=== PATIENT | female | born 1950 | race Caucasian/White ===

== ENCOUNTER → 2023-12-17 15:29 | Outpatient (REF) | payer MEDICARE, OTHER, SELFPAY | LOC: HWRAD 15:29 | PROVIDERS: ATTENDING PHYSICIAN Otolaryngology Facial Plastic Surgery; FAMILY PHYSICIAN Family Medicine | DX: J33.0 Polyp of nasal cavity (principal); J32.0 Chronic maxillary sinusitis; J34.2 Deviated nasal septum | CPT/HCPCS: 70486 ==

== ENCOUNTER → 2024-06-16 09:56 | Outpatient (REF) | payer MEDICARE, OTHER, SELFPAY | LOC: WDC 09:56 | PROVIDERS: ATTENDING PHYSICIAN Family Medicine | DX: N63.20 Unspecified lump in the left breast, unspecified quadrant (principal); N64.59 Other signs and symptoms in breast | CPT/HCPCS: 76642; 77062; 77066 ==

== ENCOUNTER → 2024-07-28 07:58 | Outpatient (REF) | payer MEDICARE, OTHER, SELFPAY ==
--- NOTE | 2024-07-28 13:41 | OID.BR.INTR ---
[facility] Breast Navigator - Initial
- -
Date of Contact: 07/28/24
Met with patient. Patient given written information on navigator services available at [facility]. Will follow up as needed per protocol.
== END ==
LOC: WDC 07:58
PROVIDERS: ATTENDING PHYSICIAN Family Medicine
DX: N63.23 Unspecified lump in the left breast, lower outer quadrant (principal)
CPT/HCPCS: 88305; 19083; A4648

== ENCOUNTER → 2024-08-29 11:00 | Outpatient (REF) | payer MEDICARE, OTHER, SELFPAY | LOC: CLAB 11:00 | PROVIDERS: ATTENDING PHYSICIAN Surgery | DX: C50.412 Malignant neoplasm of upper-outer quadrant of left female breast (principal) | CPT/HCPCS: 88305 ==

== ENCOUNTER → 2024-09-22 08:53 | Outpatient (REF) | payer MEDICARE, OTHER, SELFPAY | LOC: WDC 08:53 | PROVIDERS: ATTENDING PHYSICIAN Surgery; FAMILY PHYSICIAN Family Medicine | DX: R92.30 Dense breasts, unspecified (principal) | CPT/HCPCS: 76641 ==

== ENCOUNTER → 2024-10-04 07:43 | Outpatient (REF) | payer MEDICARE, OTHER, SELFPAY | LOC: WDC 07:43 | PROVIDERS: ATTENDING PHYSICIAN Surgery | DX: N63.14 Unspecified lump in the right breast, lower inner quadrant (principal) | CPT/HCPCS: 88305; 19083; A4648 ==

== ENCOUNTER → 2024-10-09 11:29 | Outpatient (REF) | payer MEDICARE, OTHER, SELFPAY | LOC: WDC 11:29 | PROVIDERS: ATTENDING PHYSICIAN Surgery | DX: C50.412 Malignant neoplasm of upper-outer quadrant of left female breast (principal) | CPT/HCPCS: 38792; 76942; A9541 ==

== ENCOUNTER 2024-10-10 09:35 | Inpatient (IN) | payer MEDICARE, OTHER, SELFPAY ==
[2024-09-26 08:56] LABS: Hematocrit 44.8 % (37.0-47.0); Hemoglobin 14.9 g/dL (12.0-16.0); Mean Corp Hgb Conc. 33.3 g/dL (33.0-37.0); Mean Corpuscular Hgb 31.2 pg (27.0-31.0); Mean Corpuscular Volume 93.7 fL (81.0-99.0); Mean Platelet Volume 10.5 fL (7.4-10.4); Platelet Count 284 10^3/uL (130-400); Red Blood Cell Count 4.78 10^6/uL (4.20-5.40); Red Cell Dist. Width 13.6 % (11.5-14.5); White Blood Cell Count 8.4 10^3/uL (4.8-10.8)
[2024-09-26 09:47] LABS: Prealbumin (Transthyretin) 27.1 mg/dl (17.6-36.0)
[2024-09-26 09:57] LABS: Vitamin D, 25-OH*** 39.2 ng/mL (30-80)
[2024-09-26 10:09] LABS: ALT (SGPT) 17 U/L (0-35); AST (SGOT) 21 U/L (14-36); Albumin 4.4 g/dl (3.5-5.0); Alkaline Phosphatase 107 U/L (38-126); Blood Urea Nitrogen 11 mg/dl (7-17); Calcium 9.3 mg/dl (8.4-10.2); Carbon Dioxide 27 mmol/L (22-30); Chloride 101 mmol/L (98-107); Glucose 91 mg/dl (70-99); Potassium 4.2 mmol/L (3.5-5.1); Sodium 139 mmol/L (135-145); Total Bilirubin 0.9 mg/dl (0.2-1.3); eGFR > 60.00
[2024-09-26 13:34] VITALS: BMI 26.5
[2024-10-10] VITALS (18 sets, daily range): BP systolic 30–165; BP diastolic 36–126; BMI 26.5
[2024-10-10] MEDS: TYLENOL 1000 MG PO (10:09)
[2024-10-10] MEDS: NORMOSOL-R/PLASMALYTE-A 1000 IV (10:10)
[2024-10-10] MEDS: LOVENOX 40 MG SC (10:30)
--- NOTE | 2024-10-10 13:32 | W.IMMPOSTOP ---
Surgical Immed Post Op Note
-
Primary Surgeon: Tamia
Assisting Surgeon: None
Pre-op Diagnosis: Left breast ca, multicentric
Post-op Diagnosis: Same
Procedure Performed: Left mastectomy, sentinel node mapping and biopsy
Anesthesia Type: LMA with TIVA
Specimen / Cultures: Left breast, sentinel nodes
Estimated Blood Loss: 20cc
Complications: None
Operative Findings: Neg nodes on frozen
--- NOTE | 2024-10-10 13:34 | OR.RPT ---
Operative Report
Operative Report
Pre-Op Dx: Left breast ca multicentric
Post-Op Dx: Left breast ca multicentric
Procedure: Left mastectomy, sentinel lymph node mapping and biopsy
Surgeon: Tamia
Patient is a 74-year-old female with multicentric left breast infiltrating lobular carcinoma who presents for left mastectomy and sentinel lymph node mapping and biopsy. The patient had declined reconstruction consultation.
On the day prior to the procedure the patient presented to the breast center and under went technetium radiotracer injection into that of parenchyma of the left breast. On the day of the procedure she presented to surgical services and was prepped.
DVT and antibiotic prophylaxis were provided. She was taken to the operating room and in the supine position general anesthesia was induced. The left breast and axilla were prepped and draped in usual sterile fashion. Appropriate timeout
procedure was performed with all staff present.
A standard Bharath incision was made sharply with the blade. Skin flaps were elevated using the PlasmaBlade and any larger vessels were controlled with 3-0 silk tie. The breast was taken off the chest in a superomedial to inferolateral direction.
Perforating vessels were controlled with 3-0 silk suture ligature. The breast was taken off the chest wall oriented for the pathologist and sent for analysis. This allowed entry into the axilla and clavipectoral fascia was incised with the
cautery. Using the neoprobe gamma probe, 3 sentinel node packets were encountered and excised. All feeding vessels to these nodes were controlled with 3-0 silk ties. Frozen section analysis preliminarily was negative. Hemostasis was carefully
secured. The wound was closed over a flat [place] drain brought out through the inferior skin flap and secured to the skin with a 2-0 nylon. Skin was closed using simple and erupted 3-0 plain subcutaneous tissue and a running subcuticular 4
Monocryl on skin. Surgical glue and a sterile compressive dressings were applied. All sponge needle and instrument counts were correct and the patient was transferred to the recovery room in stable condition.
([id number])
Chelsea Node Bx Breast Cancer
Chelsea Node Bx Breast Cancer
Operation performed with curative intent: Yes
Tracer(s) to ID Chelsea Nodes in Non-Neoadjuvant setting: Radioactive Tracer
Tracer(s) to ID Sentinal Nodes in the Neoadjuvant Setting: N/A
All nodes at end of dye-filled Lymphatic Channel removed: N/A
All Significantly Radioactive Nodes were removed: Yes
All Palpably Suspicious Nodes were Removed: Yes
Bx Proven Pos Nodes Marked Prior to Chemo ID'd & Removed: N/A
[2024-10-10] MEDS: DILAUDID 0.5 MG IV ×2 (13:47→14:15)
[2024-10-10] MEDS: DEMEROL 12.5 MG IV (14:02)
[2024-10-10] MEDS: DILAUDID 0.25 MG IV (14:47)
[2024-10-10] MEDS: LIPITOR 40 MG PO (16:58)
[2024-10-10] MEDS: ZOFRAN ODT (ORALLY DISINTEGRATING) 4 MG PO (17:22)
[2024-10-10] MEDS: COMPAZINE 5 MG IV (18:35)
[2024-10-10] MEDS: OSCAL 500 + D PO (21:26)
[2024-10-10] MEDS: COLACE PO (21:26)
--- NOTE | 2024-10-11 00:15 | PTCARENOTE ---
20:30 pt refused Colace and vit c/o feeling nauseous when has po intake.
[2024-10-11 03:30] VITALS: BP 103/64
[2024-10-11] MEDS: D5/0.45%NSS with KCL 20 MEQ 1000 IV (03:51)
[2024-10-11] MEDS: D5/0.45%NSS with KCL 20 MEQ IV (03:54)
[2024-10-11 05:51] LABS: Hemoglobin 11.8 g/dL (12.0-16.0)
[2024-10-11 06:28] LABS: Blood Urea Nitrogen 10 mg/dl (7-17); Calcium 8.6 mg/dl (8.4-10.2); Carbon Dioxide 23 mmol/L (22-30); Chloride 104 mmol/L (98-107); Estimated Creatinine Clearance 68 ml/min; Glucose 124 mg/dl (70-99); Potassium 4.2 mmol/L (3.5-5.1); Sodium 133 mmol/L (135-145); eGFR > 60.00
--- NOTE | 2024-10-11 08:03 | W.PN.UPDATE ---
Update Note
Progress Note Update
The pt is POD #1 S/P left mastectomy. She is doing well. Needs to ambulate and eat breakfast then ok to discharge to home. Pt is declining VNA. She will see me in office in 7-10 days.
[2024-10-11 08:10] VITALS: BP 132/73
[2024-10-11] MEDS: OSCAL 500 + D 500 MG PO (08:51)
[2024-10-11] MEDS: COLACE 100 MG PO (08:51)
[2024-10-11] MEDS: PROTONIX 40 MG PO (08:51)
[2024-10-11] MEDS: TYLENOL 500 MG PO (08:55)
--- NOTE | 2024-10-11 09:17 | CM ---
CM met with Prisca at bedside to complete IA. Pt is post-op mastectomy and order for VN for drain care. Pt known to [facility] in the past, [facility]N notified of consult and will speak with patient about services.
Prisca lives with her in a 2 story home with 1 entry step; powder room on the first floor, full bath and bedroom are on the second level.
DME in the home: RW, Std. walker, cane, commode.
Plan: Discharge to home with VN pending pt's acceptance of same.
--- NOTE | 2024-10-11 09:39 | VNURNOTE ---
[facility] liaison met with patient at bedside to discuss [facility] services. Liaison started to explain services: short-term, intermittent, to provide drain care. Patient became increasingly upset and stated 'I am a private person and don't want people going
throughout my house.' Liaison tried to explain that VNs do not 'go throughout the house' and that visits would only occur in the room she chooses. Patient would not allow liaison to further explain. Patient stated she has her and family
who will help. Per Dr Cantrell's update, she is aware of VN refusal. DILCIA Whitney updated.
[2024-10-11 11:22] VITALS: BP 133/88
== END 2024-10-11 12:30 | disposition home or self-care (01) | DRG 581 ==
LOC: 2 SOUTH 09:35
PROVIDERS: ADMITTING PHYSICIAN Surgery; FAMILY PHYSICIAN Family Medicine
PROC: 0HTU0ZZ Resection of Left Breast, Open Approach (ICD-10-PCS; 2024-10-10)
PROC: 07B60ZX Excision of Left Axillary Lymphatic, Open Approach, Diagnostic (ICD-10-PCS; 2024-10-10)
DX: C50.412 Malignant neoplasm of upper-outer quadrant of left female breast (principal); E78.00 Pure hypercholesterolemia, unspecified; M81.0 Age-related osteoporosis without current pathological fracture; Z17.0 Estrogen receptor positive status [ER+]; Z96.651 Presence of right artificial knee joint
CPT/HCPCS: 88307; 88309; 88332; 36415; 38792; 76942; 80048; 80053; 82306; 84134; 85014; 85018; 85027; 88331; 88342; 93005; A9541; L8000

== ENCOUNTER → 2025-05-30 09:31 | Outpatient (REF) | payer MEDICARE, OTHER, SELFPAY | LOC: RAD 09:31 | PROVIDERS: ATTENDING PHYSICIAN Family Medicine | DX: M81.0 Age-related osteoporosis without current pathological fracture (principal); C50.912 Malignant neoplasm of unspecified site of left female breast; R07.89 Other chest pain | CPT/HCPCS: 71270; 77080; Q9967 ==

== ENCOUNTER → 2025-07-10 13:50 | Outpatient (REF) | payer MEDICARE, OTHER, SELFPAY | LOC: HWWDC 13:50 | PROVIDERS: ATTENDING PHYSICIAN Surgery; FAMILY PHYSICIAN Family Medicine | DX: Z12.31 Encounter for screening mammogram for malignant neoplasm of breast (principal) | CPT/HCPCS: 77063; 77067 ==

== ENCOUNTER → 2025-07-25 14:42 | Outpatient (REF) | payer MEDICARE, OTHER, SELFPAY | LOC: WDC 14:42 | PROVIDERS: ATTENDING PHYSICIAN Surgery; FAMILY PHYSICIAN Family Medicine | DX: R92.2 Inconclusive mammogram (principal); C50.412 Malignant neoplasm of upper-outer quadrant of left female breast; Z17.0 Estrogen receptor positive status [ER+] | CPT/HCPCS: 76641 ==

== ENCOUNTER 2025-08-08 06:15 | Day surgery (SDC) | payer MEDICARE, OTHER, SELFPAY ==
[2025-08-08] VITALS (10 sets, daily range): BP systolic 20–165; BP diastolic 75–101; BMI 28.9
[2025-08-08] MEDS: EMEND 40 MG PO (12:06)
[2025-08-08] MEDS: TYLENOL 1000 MG PO (12:06)
[2025-08-08] MEDS: NORMOSOL-R/PLASMALYTE-A 1000 IV (12:12)
--- NOTE | 2025-08-08 13:05 | W.IMMPOSTOP ---
Surgical Immed Post Op Note
-
Primary Surgeon: DIEGO Seals MD
Assisting Surgeon:
Pre-op Diagnosis: History of breast cancer status postmastectomy
Post-op Diagnosis: Same
Procedure Performed: Delayed insertion of left tissue supervisor special education
Anesthesia Type: General
Specimen / Cultures: None
Estimated Blood Loss: 10 cc
Complications: None
Operative Findings: As expected
--- NOTE | 2025-08-08 13:05 | OR.RPT ---
Operative Report
Operative Report
Date of Surgery: 08/08/2025
Surgeon: DIEGO Seals MD
Preoperative diagnosis:
1. History of breast cancer
2. 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
Postoperative diagnosis: Same
Procedure:
1. Delayed insertion of tissue ict managers left breast
Anesthesia: General
EBL: 10 cc
Complications: None
Hand Mold Maker: 13 cm
Indications for procedure: Patient is a 75-year-old female with a history of breast cancer status post left mastectomy. She did not pursue reconstruction initially. She followed a routine postoperative course. She was left with asymmetry and
desired delayed reconstruction of the left breast. A plan was made for delayed insertion of the tissue ict managers to create a pocket for an implant-based reconstruction. Risk reviewed at length including risk of infection, extrusion, reconstructive
failure, need for repeat procedure hematoma and seroma. She understood these were his desire to proceed
Procedure in detail: Patient was identified preoperatively and the surgical site was confirmed to be the left breast and chest. All questions were answered and consents were confirmed. Patient was marked in the upright position. She was taken
back to the operative room placed supine on the table. Anesthesia was induced. Patient was prepped and draped in usual sterile fashion using ChloraPrep solution. Timeout for patient safety was performed was confirmed that preoperative antibiotics
have been administered and bilateral SCDs were in place. Procedure began with the injection 1% lidocaine with epinephrine in the prior scar and mastectomy skin flap of the left breast. A 15 blade was used to excise the prior scar and sharply
dissect the mastectomy skin flaps from the pectoralis. As able, a subfascial dissection was completed. 13 cm wide pocket was then dissected with a combination of sharp and Bovie electrocautery. Meticulous hemostasis was ensured and a Marcaine
block was performed in the pectoral and intercostal spaces. A 15 [place] P[place] drain was placed in the pocket and tunneled subcutaneously. Sutured in place with a 2-0 Prolene. 13 cm ict managers was then sutured to the chest wall with 2 oh silks.
Pocket was irrigated with Betadine and double antibiotic solution. Wound was then closed in layers with 2-0 Vicryl deep followed by 3-0 Monocryl and skin glue. Patient tolerated the procedure well was performed out complication. All counts were
correct at the end the case. She is extubated taken the PACU further care.
[2025-08-08] MEDS: DILAUDID 0.5 MG IV ×2 (14:35→14:49)
[2025-08-08] MEDS: DILAUDID 0.25 MG IV (15:17)
== END 2025-08-08 17:18 | disposition home or self-care (01) ==
LOC: SDS 06:15
PROVIDERS: ATTENDING PHYSICIAN Surgery Plastic and Reconstructive Surgery; FAMILY PHYSICIAN Family Medicine
DX: Z85.3 Personal history of malignant neoplasm of breast (principal); Z90.12 Acquired absence of left breast and nipple
CPT/HCPCS: 19357; C1789